=== PATIENT | female | born 1980 | race Caucasian/White ===

== ENCOUNTER 2021-09-24 11:37 | Emergency (ER) | payer MEDICAID ==
[~2021-09-24] VITALS: Ht 152.4 cm; Wt 88.2 kg
[~2021-09-24 11:37] MED LIST: DULO-31 PO; FERR-86 PO; FOLI-43 PO; HYDR1TAB PO; TOBR5DRO2 LEFTEYE
[2021-09-24 12:00] VITALS: BP 157/88
[2021-09-24] MEDS ORDERED: HYDR-3965 PO (13:56)
== END 2021-09-24 14:18 | disposition home or self-care (01) ==
LOC: ER 11:39
DX: S92.422A Displaced fracture of distal phalanx of left great toe, initial encounter for closed fracture (principal); W22.8XXA Striking against or struck by other objects, initial encounter; Y93.89 Activity, other specified; Y92.89 Other specified places as the place of occurrence of the external cause; Y99.8 Other external cause status
CPT/HCPCS: 73660; 99283; L3260

== ENCOUNTER 2022-05-22 06:58 | Emergency (ER) | payer MEDICAID ==
[~2022-05-22] VITALS: Ht 152.4 cm; Wt 90.9 kg
--- NOTE | 2022-05-22 09:00 | NUR ---
I called lab not too long ago to ask them about blood draw ordered. The staff I spoke to said they will ask a deposit refund clerk to come
[2022-05-22 09:22] LABS: BASOPHILS % (AUTO) 0.5 % (0-1); EOSINOPHILS # (AUTO) 0.2 X10'3 (0-0.9); HEMATOCRIT 40.5 % (35.0-45.0); HEMOGLOBIN 13.3 g/dl (12.0-16.0); LYMPHOCYTES # (AUTO) 1.5 X10'3 (1.1-4.8); LYMPHOCYTES % (AUTO) 21.7 % (21-51); MEAN CORPUSCULAR HEMOGLOBIN 30.3 PG (27.0-31.0); MEAN CORPUSCULAR HGB CONC 32.9 g/dL (33.0-36.5); MEAN CORPUSCULAR VOLUME 92.1 FL (78-98); MEAN PLATELET VOLUME 8.1 FL (7.4-10.4); MONOCYTES # (AUTO) 0.4 X10'3 (0-0.9); MONOCYTES % (AUTO) 6.6 % (2-12); NEUTROPHILS # (AUTO) 4.6 X10'3 (1.8-7.7); NEUTROPHILS % (AUTO) 68.2 % (42-75); PLATELET COUNT 256 X10'3 (140-440); WHITE BLOOD COUNT 6.8 X10'3 (4.5-11.0)
[2022-05-22] MEDS ORDERED: proCHLORperazine 10 MG/2 ml inj IV ONE (09:35)
[2022-05-22] MEDS ORDERED: ketorolac trometh. 30mg/ml inj. IV ONE (09:35)
--- NOTE | 2022-05-22 09:43 | NUR ---
Patient stated her last menstrual period was just last week and she had tubal ligation.
[2022-05-22 09:44] LABS: ALANINE AMINOTRANSFERASE 42 U/L (12-78); ALBUMIN 3.6 G/DL (3.4-5.0); ALKALINE PHOSPHATASE 65 IU/L (46-116); ANION GAP 9 (8-16); ASPARTATE AMINO TRANSFERASE 29 U/L (10-37); BILIRUBIN,TOTAL 0.2 MG/DL (0.1-1.0); BLOOD UREA NITROGEN 10 MG/DL (7-18); BUN/CREATININE RATIO 17.5 (6.6-38.0); CALCIUM 8.8 MG/DL (8.5-10.1); CHLORIDE 103 MMOL/L (99-107); CREATININE 0.57 MG/DL (0.40-0.90); GLUCOSE 90 MG/DL (70-104); SODIUM 138 MMOL/L (135-145); TOTAL CARBON DIOXIDE 25.7 MMOL/L (24-32); TOTAL PROTEIN 7.2 G/DL (6.4-8.2); eGFR > 90 ML/MIN
[2022-05-22 11:25] VITALS: BP 140/83
== END 2022-05-22 11:26 | disposition home or self-care (01) ==
LOC: ER 06:58
DX: R03.0 Elevated blood-pressure reading, without diagnosis of hypertension (principal); R51.9 Headache, unspecified; Z98.890 Other specified postprocedural states; Z98.51 Tubal ligation status; Z79.899 Other long term (current) drug therapy
CPT/HCPCS: 36415; 70450; 71045; 80053; 85025; 93005; 96374; 96375; 99285; J0780; J1885; J7030

== ENCOUNTER 2023-09-14 09:07 | Outpatient (CLI) | payer MEDICAID | END 2023-09-14 23:59 | disposition home or self-care (01) | LOC: RAD 09:07 | PROVIDERS: ATTEND Physician Assistant | DX: N92.1 Excessive and frequent menstruation with irregular cycle (principal) | CPT/HCPCS: 76856 ==